=== PATIENT | female | born 1985 | race Caucasian/White ===

== ENCOUNTER 2024-02-03 12:22 | Emergency (ER) | payer MEDICAID, SELFPAY ==
--- NOTE | ~2024-02-03 | XR_ITS ---
EXAMINATION: XR CHEST CLINICAL INFORMATION: Cough and pain COMPARISON: None available. TECHNIQUE: 2 views of the chest were obtained. FINDINGS: No significant abnormality is noted involving the heart, lungs, mediastinum, bony thorax or soft tissues. XR/XR chest 2V IMPRESSION: Unremarkable chest examination.
--- NOTE | 2024-02-03 12:23 | ECG_ITS ---
Test Reason : CHEST PAIN Blood Pressure : / mmHG Vent. Rate : 096 BPM Atrial Rate : 096 BPM P-R Int : 132 ms QRS Dur : 068 ms QT Int : 348 ms P-R-T Axes : 023 017 022 degrees QTc Int : 439 ms Normal sinus rhythm Low voltage QRS Borderline ECG No previous ECGs available Referred By: Jimena Roper Electronically Signed By:Lamine Cabrera
[2024-02-03 12:46] VITALS: BP 126/78; PULSE 95; RESP 20; TEMP 37.3; O2SAT 97; BMI 43.9
--- NOTE | 2024-02-03 12:46 | ED_ITS ---
HPI - Chest Pain General Chief Complaint: Upper Respiratory Symptoms Stated Complaint: Chest pain, SOB Time Seen by Provider: 02/03/24 14:01 Source: patient and RN notes reviewed Mode of arrival: ambulatory Limitations: no limitations History of Present Illness HPI narrative: This is a 38-year-old female, with no known medical problems, presenting to the emergency department with complaints of congestion, productive cough, shortness of breath, body aches, headaches, subjective fevers and chills x5 days. Patient reports that over the last 5 days she has also had intermittent chest pain, states that the chest pain occurs when moving her left arm. No pleuritic chest pain. Denies any sharp chest pressure or pain. No cardiac history. No family cardiac history. Denies any recent travel, surgeries, hospitalizations. She is not on control. Prior episodes: No Pain location: left chest Pain radiation: none Quality: aching Relieving factors: nothing Exacerbating factors: nothing Treatment prior to arrival: none Risk Factors Coronary artery disease risk factors: none Thoracic aortic dissection risk factors: none Related Data On Oral Contraceptives: No Allergies Allergy/AdvReac Type Severity Reaction Status Date / Time No Known Allergies Allergy Unverified 08/14/20 18:42 [No Known Allergies*] Review of Systems Review of Systems: Yes all other systems are reviewed and are negative Constitutional: Constitutional: Reports as per [facility] Past Medical History Attestation statement: The following information was validated with the patient. Social History Social History Advance Directives: No Advance Directives Information Provided: No Physical Exam Vital Signs: Vital Signs: Last Vital Signs Temp 98.5 F 02/03/24 14:51 Pulse 90 02/03/24 14:51 Resp 20 02/03/24 14:51 BP 127/78 02/03/24 14:51 Pulse Ox 98 02/03/24 14:51 O2 Del Method Room Air 02/03/24 14:51 BMI result Body Mass Index 43.9 Const: General: cooperative, comfortable and no acute distress Orientation/consciousness: patient oriented x3 Limitations: no limitations HEENT: Head: Yes normal to inspection, Yes normocephalic and Yes atraumatic Ears: hearing grossly normal bilaterally General nose exam: Normal external nose present Face and sinus: Yes normal facial exam Mouth: Normal oral and palatal mucosa present, oropharynx normal and moist mucous membranes Throat: Yes posterior oropharynx normal Eyes: General: appearance normal, both eyes and all related structures Eyelids: Yes eyelids normal Conjunctivae: conjunctivae normal Sclerae: sclerae normal Pupils: Equal, round and reactive pupils present EOM: EOMs intact bilaterally Neck: Neck: Yes normal visual inspection, Yes full ROM and Yes no lymphadenopathy Lymphatic: no lymphadenopathy noted Chest: Other: Tenderness palpation along the left anterior chest wall. Chest pain elicited with movement of her left arm. No pleuritic chest pain Chest palpation & inspection: normal inspection of the chest Resp: Effort & Inspection: normal respiratory effort and able to speak in complete sentences Auscultation: clear to auscultation bilaterally, no crackles, no rales, no rhonchi and no wheezes Cardio: Rate: regular rate Rhythm: regular rhythm Heart sounds: S1 normal heart sound present and S2 normal heart sound present GI: Other: Abdomen is soft nontender, no left upper abdominal tenderness. No rebound or guarding. Normoactive bowel sounds present in all 4 quadrants. Inspection: Yes normal to inspection Skin: General skin exam: no rashes or lesions noted Trauma: no lacerations or abrasions Wounds: no wounds Neuro: General: patient oriented x3 and moves all extremities Cranial nerves: Yes Equal, round and reactive pupils present Extrem: General: Yes normal to inspection Right upper extremity: normal to inspection Left upper extremity: normal to inspection Right lower extremity: normal to inspection Left lower extremity: normal to inspection Course Course Course Narrative: RME performed by Jimena Roper PA-C. Patient is a 38 year old assigned female at presenting to the emergency department with a cough and feeling generally unwell. Detailed physical exam and review of systems are deferred to the line ordering clinician. Imaging and swabs ordered. Patient placed back in the waiting room pending room availability and results. Medical Decision Making Medical Decision Making MDM Narrative: This is a 38-year-old female, with no known medical problems, presenting to the emergency department with complaints of productive cough, congestion, body aches, for the last 5 days. On arrival, patient nontoxic appearing, no signs within normal limits. Lungs are clear to auscultation bilaterally. Heart regular rate and rhythm. Differential diagnoses include URI, pneumonia, influenza, COVID. Patient is PERC negative. No pleuritic chest pain. Does not cardiac in nature as chest pain only occurs with movement of her left arm, therefore further cardiac workup not indicated at this time. Chest x-ray was performed, does not reveal any consolidations. Patient tested positive for flu B. I discussed these findings with patient, advised to treat symptoms at home, given return precautions. She understands and agrees with plan. Stable for discharge Differential Diagnosis Differential Diagnoses: The differential diagnosis associated with the presentation includes Flu, pneumonia, COVID see above for others Admission/Observation Consideration of admission/observation: Escalation of care including admission/observation considered Escalation of care including admission/observation considered however given workup today not warranted at this time. Lab Data MDM Lab Attestation statement: I reviewed the patient's lab results. Negative COVID Labs: Lab Results 02/03/24 Range/Units 12:51 Influenza Type A (PCR) NEGATIVE (Negative) Influenza Type B (PCR) POSITIVE A (Negative) RSV RNA Qual (PCR) NEGATIVE (Negative) SARS-CoV-2 RNA (RT-PCR) NEGATIVE (Negative) Independent Interpretation I performed an independent interpretation of an: EKG Interpretation: EKG normal sinus rhythm at a ventricular rate of 96 beats per minute, VT interval 132, QTC 439, no ST elevation or depression Chest x-ray revealing no acute consolidations Radiology Impression Discussion of test interpretation with radiology: I have reviewed the radiologist's reading. Radiologist Impression: EXAMINATION: XR CHEST CLINICAL INFORMATION: Cough and pain COMPARISON: None available. TECHNIQUE: 2 views of the chest were obtained. FINDINGS: No significant abnormality is noted involving the heart, lungs, mediastinum, bony thorax or soft tissues. XR/XR chest 2V IMPRESSION: Unremarkable chest examination. Dictated By: Timo Valerio MD Prescription Management I considered prescription management with: Antiviral Patient out of window for antiviral treatment at this time, as she has been symptomatic for 5 days. Discharge Plan Discharge Clinical Impression: Influenza Patient Disposition: Home, Self-Care Instructions: Influenza (ED) Additional Instructions: Your seen in the emergency department and tested positive for influenza B. Influenza is also known as the flu, this is a virus. You do not need antibiotics at this time. Your chest x-ray does not show a pneumonia. Please alternate between ibuprofen and Tylenol as needed for pain and fevers. Drink plenty of fluids, get plenty of rest. If any new or worsening symptoms occur including but not limited to chest pain, shortness of breath, dizziness, blurred vision, please return for re-evaluation. Stand Alone Forms: Work/School Release
[2024-02-03 14:03] LABS: Influenza A PCR NEGATIVE (Negative); Influenza B PCR POSITIVE (Negative); Resp Syncy Virus RNA Qual PCR NEGATIVE (Negative); SARS COV2 PCR INHOUSE NEGATIVE (Negative)
[2024-02-03 14:51] VITALS: BP 127/78; PULSE 90; RESP 20; TEMP 36.9; O2SAT 98
[2024-02-03 15:00] VITALS: O2SAT 97
[2024-02-03] MEDS: Acetaminophen 325 MG TABLET 975 MG PO (15:22)
== END 2024-02-03 15:25 | disposition home or self-care (01) ==
PROVIDERS: Physician Assistant Medical; Emergency Provider Emergency Medicine
DX: J11.1 Influenza due to unidentified influenza virus with other respiratory manifestations (principal); Z11.52 Encounter for screening for COVID-19; Z20.828 Contact with and (suspected) exposure to other viral communicable diseases
CPT/HCPCS: 0241U; 71046; 93005; 99283; 99285

== ENCOUNTER → 2024-02-03 12:23 | Outpatient (BNV) | payer MEDICAID, SELFPAY | PROVIDERS: Emergency Provider Emergency Medicine; Visit Provider Internal Medicine Cardiovascular Disease | DX: R07.9 Chest pain, unspecified (principal) | CPT/HCPCS: 93010 ==

== ENCOUNTER → 2024-12-07 02:00 | Outpatient (BNV) | payer MEDICAID, SELFPAY | PROVIDERS: Emergency Provider Internal Medicine; Visit Provider Specialist | DX: T14.90XA Injury, unspecified, initial encounter (principal) | CPT/HCPCS: 73610 ==

== ENCOUNTER 2024-12-07 02:20 | Emergency (ER) | payer MEDICAID, SELFPAY ==
--- NOTE | ~2024-12-07 | XR_ITS ---
CLINICAL HISTORY: INJURY 3 view left ankle Comparison: None Findings: No acute fracture or dislocation. Ankle mortise is intact. No significant loss of joint space, osteophytes, or erosions. Posterior calcaneal enthesophyte. Os trigonum. No ankle effusion. IMPRESSION: 1. No acute fracture or dislocation of the left ankle. This document has been electronically signed by: Jolanta Nix MD on 12/07/2024 03:08:56
[2024-12-07 02:20] VITALS: BP 134/72; PULSE 117; RESP 20; TEMP 36.6; O2SAT 96; BMI 44.8
--- NOTE | 2024-12-07 02:38 | PC.NURSE ---
Pt taken to X-ray.
[2024-12-07 02:56] VITALS: BP 114/68; PULSE 105; RESP 16; TEMP 37.4; O2SAT 99
--- NOTE | 2024-12-07 03:05 | PC.NURSE ---
pt alert, complaining of pain to her left ankle, with nausea, +CMS to LLE
--- NOTE | 2024-12-07 03:54 | ED.LOWEXIN ---
HPI - Extremity Injury (Lower) General Chief Complaint: Extremity Injury, Lower Stated Complaint: twisted left ankle Time Seen by Provider: 12/07/24 03:54 Source: patient Mode of arrival: ambulatory Limitations: no limitations History of Present Illness ED Provider: HPI Narrative: Apparently patient twisted her left ankle while walking tripped into a hole complaining of pain left ankle with swelling of the lateral able to ambulate pain no other injury Related Data Previous Rx's ?Medication ?Instructions ?Recorded ibuprofen 600 mg tablet 600 mg PO Q6H PRN fever or pain 12/07/24 #30 tabs Allergies Allergy/AdvReac Type Severity Reaction Status Date / Time No Known Allergies Allergy Verified 12/07/24 02:22 [No Known Allergies*] Review of Systems Review of Systems: Yes all other systems are reviewed and are negative [facility] Social History Social History Smoked in Last 30 Days: No Advance Directives: No Do you have a plan to hurt others: No Plan Physical Exam Vital Signs: Vital Signs: Last Vital Signs Temp 99.2 F 12/07/24 04:00 Pulse 106 H 12/07/24 04:00 Resp 20 12/07/24 04:00 BP 121/75 12/07/24 04:00 Pulse Ox 94 12/07/24 04:00 O2 Del Method Room Air 12/07/24 04:00 BMI result Body Mass Index 44.8 Appearance: Alert. Oriented X3. No acute distress. ENT: Pharynx normal. Oral Mucosa moist atraumatic normocephalic Neck: Normal inspection. Neck supple. CVS: Normal heart rate and rhythm. Pulses normal. Respiratory: No respiratory distress. Equal air entry bilateral, no wheezing/rales/rhonchi Abdomen: Soft and nontender. Bowel sounds are present, Skin: Skin warm and dry. Normal skin color. Normal skin turgor. Extremities: No lower extremity edema. No calf tenderness left ankle swelling of the lateral malleolus no deformity of the ankle mortise Neuro: Oriented X 3. No motor deficit. Medical Decision Making Medical Decision Making MDM Narrative: Patient's left ankle sprain aircast was applied patient x-ray negative fracture Independent Interpretation I performed an independent interpretation of an: Plain X-Ray Radiology Impression Discussion of test interpretation with radiology: I have reviewed the radiologist's reading. Radiologist Impression: Negative for fracture Discharge Plan Discharge Clinical Impression: Ankle sprain and strain Patient Disposition: Home, Self-Care Instructions: Ankle Sprain (ED) Additional Instructions: Wear the splint for support Apply ice pack rest ibuprofen for pain Your x-rays negative for fracture Prescriptions: New ibuprofen 600 mg tablet 600 mg PO Q6H PRN (Reason: fever or pain) Qty: 30 0RF Print Language: Vietnamese
[2024-12-07 04:00] VITALS: BP 121/75; PULSE 106; RESP 20; TEMP 37.3; O2SAT 94
[2024-12-07] MEDS: Ibuprofen 600 MG TABLET PO (04:35)
[2024-12-07 04:43] VITALS: BP 121/75; PULSE 106; RESP 20; TEMP 37.3; O2SAT 94
== END 2024-12-07 04:44 | disposition home or self-care (01) ==
PROVIDERS: Emergency Provider Internal Medicine
DX: S93.402A Sprain of unspecified ligament of left ankle, initial encounter (principal); M25.572 Pain in left ankle and joints of left foot; W01.0XXA Fall on same level from slipping, tripping and stumbling without subsequent striking against object, initial encounter; Y93.9 Activity, unspecified; Y92.9 Unspecified place or not applicable; Y99.8 Other external cause status
CPT/HCPCS: 73610; 99284